=== PATIENT | female | born 1990 | race Caucasian/White ===

== ENCOUNTER 2022-04-10 12:23 | Inpatient (IN) ==
[2022-04-10 17:55] LABS: Urine Benzodiazepine Screen None Detected (None Detect); Urine Cannabinoids Screen None Detected (None Detect); Urine Opiates Screen None Detected (None Detect)
[2022-04-11] MEDS: Vitamin THERAPEUTIC TAB PO SCH (07:20)
[2022-04-12] MEDS: Vitamin THERAPEUTIC TAB PO SCH (09:35)
[2022-04-12 10:46] LABS: ABS Lymphocytes 1.9 10^3/ul (1.0-4.8); ABS Monocytes 0.6 10^3/ul (0-0.8); ABS Neutrophils 4.8 10^3/ul (1.5-7.7); Eosinophil % 0.3 %; Hematocrit 40 % (35-47); Hemoglobin 13.6 g/dL (12.0-16.0); Lymphocyte % 25.8 %; Mean Corpuscular HGB Conc 34 g/dL (31-36); Mean Corpuscular Hemoglobin 30 pg (27-31); Mean Corpuscular Volume 88 fL (80-97); Mean Platelet Volume 8.4 fL (7.4-10.4); Nucleated Red Blood Cells % 0.1; Platelet Count 246 10^3/uL (150-450); Red Blood Count 4.54 10^6 /uL (3.70-4.87); Red Cell Distribution Width 13 % (10-15); White Blood Count 7.3 10^3/uL (3.5-10.8)
[2022-04-12 11:29] LABS: Anion Gap 12 mmol/L (2-11); Blood Urea Nitrogen 10 mg/dL (6-24); CO2 Carbon Dioxide 24 mmol/L (22-32); Calcium 9.6 mg/dL (8.6-10.3); Chloride 102 mmol/L (101-111); Cholesterol 243 mg/dL; Glucose 80 mg/dL (70-100); HDL Cholesterol 89.1 mg/dL; LDL Cholesterol 135 mg/dL; Potassium 3.9 mmol/L (3.5-5.0); Sodium 138 mmol/L (135-145); Triglycerides 95 mg/dL
[2022-04-12 11:37] LABS: HCG Pregnancy < 0.60 mIU/mL
[2022-04-12 11:44] LABS: TSH Ultra Thyroid Stim Horm 0.49 mcIU/mL (0.34-5.60)
[2022-04-13] MEDS: Vitamin THERAPEUTIC TAB PO SCH (07:52)
[2022-04-13] MEDS: Al Hydrox/Mg Hydrox/Simet LIQ 30 ML UDC PO PRN (07:53)
[2022-04-14] MEDS: Al Hydrox/Mg Hydrox/Simet LIQ 30 ML UDC PO PRN (08:06)
[2022-04-14] MEDS: Vitamin THERAPEUTIC TAB PO SCH (08:06)
[2022-04-14 08:34] VITALS: BP 131/75
== END 2022-04-14 12:38 | disposition home or self-care (01) | DRG 755 ==
LOC: ED 12:23 → EDHOLD 18:34 → BSU 18:39
PROVIDERS: ADMIT Psychiatry & Neurology Psychiatry; ATTEND Psychiatry & Neurology Psychiatry